=== PATIENT | female | born 1950 | race African-American/Black ===

== ENCOUNTER → 2017-02-03 | Day surgery (SDC) | payer OTHER, BC ==
[~2017-02-03] MED LIST: ALPHAGAN-P OPHTH 1 DOSE AFFEYE ONE; TETRACAINE 0.5% OPHTH 1 DOSE AFFEYE ONE
[2017-02-03 13:47] VITALS: BP 137/69
== END ==
LOC: SURG1 13:20
PROVIDERS: ATTEND Ophthalmology
PROC: 08QD3ZZ Repair Left Iris, Percutaneous Approach (ICD-10-PCS; principal; 2017-02-03 22:30)
DX: H40.1122 Primary open-angle glaucoma, left eye, moderate stage (principal)
CPT/HCPCS: 65855

== ENCOUNTER → 2017-02-17 | Day surgery (SDC) | payer OTHER, BC ==
[2017-02-17 13:59] VITALS: BP 145/87
== END ==
LOC: SURG1 13:25
PROVIDERS: ATTEND Ophthalmology
PROC: 08QC3ZZ Repair Right Iris, Percutaneous Approach (ICD-10-PCS; principal; 2017-02-17 21:00)
DX: H40.1110 Primary open-angle glaucoma, right eye, stage unspecified (principal)
CPT/HCPCS: 65855